=== PATIENT | female | born 1960 | race African-American/Black ===

== ENCOUNTER 2017-08-20 14:07 | Outpatient (CLI) | payer OTHER ==
--- NOTE | 2017-08-20 16:39 | RAD ---
THREE VIEWS LEFT HAND: 08/20/17 HISTORY: Fell over while skateboarding with pain in palm area. M79.642. AP, lateral, and oblique views left hand demonstrates no evidence of left hand fractures, subluxatio ns, or bony lesions. IMPRESSION: Normal three views left hand. POS: [facility]
== END 2017-08-20 14:08 | disposition home or self-care (01) ==
LOC: SCSRAD 14:07
PROVIDERS: ATTEND Family Medicine
DX: M79.642 Pain in left hand (principal)

== ENCOUNTER 2017-11-11 11:44 | Outpatient (CLI) | payer OTHER ==
--- NOTE | 2017-11-11 12:29 | RAD ---
RIGHT SHOULDER TWO VIEWS: History: Right shoulder pain. FINDINGS: Acromioclavicular and glenohumeral alignment are maintained. No acute fracture or dislocation are ortiz arent. There is minimal cystic change at the greater tuberosity. IMPRESSION: Mild degenerative changes. No acute osseous abnormalities are demonstrated. POS: [facility]
== END 2017-11-11 11:45 | disposition home or self-care (01) ==
LOC: SCSRAD 11:44
PROVIDERS: ATTEND Family Medicine
DX: M25.511 Pain in right shoulder (principal); M19.011 Primary osteoarthritis, right shoulder